=== PATIENT | female | born 1970 | race Caucasian/White ===

== ENCOUNTER 2024-07-04 19:39 | Inpatient (IN) | payer OTHER ==
--- NOTE | 2024-07-04 20:30 | ED ---
General Adult HPI - General Chief complaint: Skin/Abscess/Foreign Body Stated complaint: R Leg Wound Time Seen by Provider: 07/04/24 19:41 Source: patient, RN/MD, RN notes reviewed Mode of arrival: wheelchair Limitations: no limitations - History of Present Illness Initial comments: Patient is a 53-year-old female presenting to the emergency department with concern for right leg wound. Patient states she bumped her car a month ago and has been dealing with this since that time. Patient was on Keflex as an outpatient without improvement. Patient did see her primary care physician today who recommended she go to the emergency department. Patient was then transferred from [facility] here. Patient did have blood cultures done and IV antibiotics. No fever. Patient states discomfort has not been severe. - Related Data Allergies Allergy/AdvReac Type Severity Reaction Status Date / Time acetaminophen [From Vicodin] AdvReac Unknown Verified 07/04/24 19:45 hydrocodone [From Vicodin] AdvReac Unknown Verified 07/04/24 19:45 Review of Systems ROS Statement: Those systems with pertinent positive or pertinent negative responses have been documented in the HPI. ROS Other: All systems not noted in ROS Statement are negative. Constitutional: Denies: fever Eyes: Denies: eye pain ENT: Denies: ear pain Respiratory: Denies: cough, dyspnea Cardiovascular: Denies: chest pain Skin: Reports: as per HPI, rash Past Medical History Past Medical History: Diabetes Mellitus, Hypertension History of Any Multi-Drug Resistant Organisms: None Reported Past Surgical History: Orthopedic Surgery Past Psychological History: No Psychological Hx Reported Smoking Status: Current every day smoker Past Alcohol Use History: None Reported Past Drug Use History: None Reported General Exam Limitations: no limitations General appearance: alert, in no apparent distress Head exam: Present: normocephalic Eye exam: Present: normal appearance ENT exam: Present: normal oropharynx, other (Birthmark on the nose) Neck exam: Present: normal inspection Respiratory exam: Present: normal lung sounds bilaterally Cardiovascular Exam: Present: regular rate, normal rhythm GI/Abdominal exam: Present: soft. Absent: tenderness Extremities exam: Present: other (Right lower leg with erythema from the foot to the knee. Poor hygiene of the foot) Neurological exam: Present: alert. Absent: motor sensory deficit Psychiatric exam: Present: normal affect, normal mood Skin exam: Present: erythema Course Vital Signs 07/04/24 19:40 Temperature 99.0 F Pulse Rate 108 H Respiratory 18 Rate Blood Pressure 192/81 O2 Sat by Pulse 95 Oximetry Medical Decision Making - Medical Decision Making Was pt. sent in by a medical professional or institution ([facility] French, FRAME TENDER, urgent care, hospital, or fci...) When possible be specific @ -Patient was sent from primary care physician to [place] [facility] to here Did you speak to anyone other than the patient for history (EMS, parent, family, police, friend...)? What history was obtained from this source @ -I did speak to transferring physician Did you review nursing and triage notes (agree or disagree)? Why? @ -I reviewed and agree with nursing and triage notes Were old charts reviewed (outside hosp., previous admission, EMS record, old EKG, old radiological studies, urgent care reports/EKG's, fci records)? Report findings @ -Chart reviewed from outside emergency physician Differential Diagnosis (chest pain, altered mental status, abdominal pain women, abdominal pain men, vaginal bleeding, weakness, fever, dyspnea, syncope, headache, dizziness, GI bleed, back pain, seizure, CVA, palpatations, mental health, musculoskeletal)? @ -Differential Fever: Pneumonia, viral URI, endocarditis, myocarditis, pericarditis, otitis, sinusitis, peritonsillar Abscess, retropharyngeal Abscess, epiglottitis, peritonitis, appendicitis, Winnie cystitis, diverticulitis, hepatitis, colitis, UTI, PID, TOA, pyelonephritis, prostatitis, epididymitis, meningitis, encephalitis, pulmonary embolism, CVA, thyroid storm, pancreatitis, adrenal crisis, cavernous sinus thrombosis, this is not meant to be an all-inclusive list. EKG interpreted by me (3pts min.). @ -As above X-rays interpreted by me (1pt min.). @ -None done CT interpreted by me (1pt min.). @ -None done U/S interpreted by me (1pt. min.). @ -None done What testing was considered but not performed or refused? (CT, X-rays, U/S, labs)? Why? @ -None What meds were considered but not given or refused? Why? @ -None Did you discuss the management of the patient with other professionals (professionals i.e. KHO[facility] French, FRAME TENDER, lab, RT, psych nurse, healthcare social worker, vp human resources, teacher, ground intelligence officer, behavioral health case manager)? Give summary @ -Case discussed with Dr. Shah who will admit covering Dr. Ballard Was smoking cessation discussed for >3mins.? @ -No Was critical care preformed (if so, how long)? @ -No Were there social determinants of health that impacted care today? How? (Homelessness, low income, unemployed, alcoholism, drug addiction, transportation, low edu. Level, literacy, decrease access to med. care, half-way, rehab)? @ -No Was there de-escalation of care discussed even if they declined (Discuss DNR or withdrawal of care, Hospice)? DNR status @ -No What co-morbidities impacted this encounter? (DM, HTN, Smoking, COPD, CAD, Cancer, CVA, ARF, Chemo, Hep., AIDS, mental health diagnosis, sleep apnea, morbid obesity)? @ -Diabetes Was patient admitted / discharged? Hospital course, mention meds given and route, prescriptions, significant lab abnormalities, going to OR and other pertinent info. @ -Patient presents with cellulitis right lower leg, failed outpatient therapy. Patient high risk secondary to diabetes. Patient has elevated white count of 16. Blood culture and IV antibiotics were previously started. IV antibiotics will be continued. Admission orders written. Patient updated. Undiagnosed new problem with uncertain prognosis? @ -No Drug Therapy requiring intensive monitoring for toxicity (Heparin, Nitro, Insulin, Cardizem)? @ -No Were any procedures done? @ -No Diagnosis/symptom? @ -Cellulitis right lower leg Acute, or Chronic, or Acute on Chronic? @ -Acute Uncomplicated (without systemic symptoms) or Complicated (systemic symptoms)? @ -Default Side effects of treatment? @ -No Exacerbation, Progression, or Severe Exacerbation? @ -No Poses a threat to life or bodily function? How? (Chest pain, [place], [place], pneumonia, PE, COPD, DKA, ARF, appy, cholecystitis, CVA, Diverticulitis, Homicidal, Suicidal, threat to staff... and all critical care pts) @ -No Disposition Clinical Impression: Cellulitis of right leg Disposition: ADMITTED IP TO THIS HOSP Is patient prescribed a controlled substance at d/c from ED?: No Referrals: Oneal Ballard MD [Primary Care Provider] - 1-2 days Time of Disposition: 20:30
[2024-07-04] MEDS ORDERED: NALOXONE 0.4 MG/ML 1 ML VIAL IV PRN (20:33)
[2024-07-04] MEDS ORDERED: VANCOMYCIN IV PER PHARMACY 1 EACH MISC MISCELLANE PRN ×2 (20:33→23:08)
[2024-07-04] MEDS ORDERED: VANCOMYCIN 1,500 MG in SODIUM CHLORIDE 0.9% 500 ML 500 ML IVPB ONE (20:45)
[2024-07-04] MEDS ORDERED: DEXTROSE 50% SYRINGE 50 ML IVP PRN ×2 (21:24)
[2024-07-04] MEDS ORDERED: cloNIDine HCL 0.1 MG TAB PO PRN (21:27)
[2024-07-04] MEDS: FUROSEMIDE 10 MG/ML 2 ML VIAL IV STA (22:06)
--- NOTE | 2024-07-04 23:07 | P.HPIM ---
History of Present Illness H&P Date: 07/04/24 History of present illness; Patient is a 53-year-old female with diabetes on insulin, hypertension who presents with right leg wound. She states that 1 month ago she bumped her leg in her car. Patient began to notice redness, weeping wound in her right lower extremity. Patient saw her PCP and was placed on Keflex which she has taken for the last 5 days without improvement, to which her PCP recommended coming to ER. Patient was then transferred from [place] here. Patient did have blood cultures done and IV vancomycin and Zosyn. She is afebrile. She currently has no pain in her lower extremities. She also attest to poorly controlled diabetes with last HbA1c immeasurable and assumed to be over 15%. She also attest to ongoing blood pressure elevation which she is not taking medication for at this time. She denies any other symptoms of chills, chest pain, shortness of breath, abdominal pain. Spoke with the ER physician, patient admission was accepted by internal medicine service for treatment. REVIEW OF SYSTEMS: Pertinent positives and negatives noted in HPI. PHYSICAL EXAMINATION: VITAL SIGNS: Reviewed GENERAL: Resting comfortably in bed. Obese. Facial birthmark present on nose. EYES: PERRL, no scleral injection or icterus. HENT: Normocephalic, atraumatic, hearing grossly intact, moist mucous membranes. toothless. NECK: No tracheal deviation, full range of motion. CARDIOVASCULAR: S1 and S2 present. No murmurs, rubs, or gallops. PULMONARY: Chest is clear to auscultation, no wheezing, rhonchi, or crackles. ABDOMEN: Soft, nontender, nondistended. No palpable organomegaly. NEUROLOGICAL: Alert and oriented. Gross neurological examination with no apparent focal deficits. MUSCULOSKELETAL: No apparent joint swelling and deformities. EXTREMITIES: No apparent cyanosis, clubbing. 2+ peripheral edema bilaterally. Decreased sensation apparent in toes bilaterally. SKIN: Right lower extremity with erythema from foot extending inches below knee. Nontender. Dermatitis present. Nonpurulent, not ulcerating. Drainage below right ankle. Left lower extremity also with erythema, and significant dermatitis. Nontender, nonpurulent. Labs and imaging completed at [facility] reviewed. Labs significant for WBC 16, hemoglobin 16, platelets elevated, sodium 137, potassium 3.6, chloride 100, bicarb 28, BUN 19, glucose 179. X-ray of right foot interpreted to be without bony erosions. Assessment and Plan: In summary, patient is a 53-year-old female with diabetes on insulin, hypertension who presents with right leg wound. #Sepsis 2/2 Cellulitis of right lower extremity , failed outpatient therapy #Chronic venous insufficiency of bilateral lower limbs #Venous stasis dermatitis Initial WBC 16 elevated X-ray of right foot without bony erosions - blood culture at [facility] Status post Keflex for 5 days and dose of Zosyn and vancomycin antibiotics Lasix 20 mg IV given once - start on Vancomycin dose per pharm discontinue zosyn ID consulted normal saline 1 L bolus , then continue with 130 cc per hour , patient ? received 1 L at the other facility # Hypertensive urgency Begin lisinoprilhydrochlorothiazide 1012.5 daily Begin clonidine 0.1 p.o. every 8 hours as needed for SBP greater than 180 Monitor vitals renal function unremarkable , cr 0.8 BUN 19, K 3.6 Na 137 #Diabetes mellitus, type 2 #Uncontrolled hyperglycemia #Diabetic neuropathy Glucose 179 elevated Holding oral medications Begin Accu-Cheks and low-dose sliding scale, monitor for hypoglycemia HbA1c pending Chronic Medical Conditions: As above DVT ppx: Subq Lovenox 40 meq daily Code status: Full code F: P.o. E: Replete as needed N: Consistent carb diet A: Ambulatory Anticipated discharge place: Home Anticipated discharge time: 2 to 3 days David Flores MD Internal Medicine Resident, PGY1 Dictation was produced using [employer] dictation software. Please excuse any grammatical, word or spelling errors. I have seen and evaluated the patient today. I Discussed the case with the resident and agree with the resident's findings I edited the assessment and plan as necessary as documented in the resident's note. Past Medical History Past Medical History: Diabetes Mellitus, Hypertension History of Any Multi-Drug Resistant Organisms: None Reported Past Surgical History: Orthopedic Surgery Past Psychological History: No Psychological Hx Reported Smoking Status: Current every day smoker Past Alcohol Use History: None Reported Past Drug Use History: None Reported Medications and Allergies Home Medications Medication Instructions Recorded Confirmed Type Cephalexin [Keflex] 500 mg PO TID-W/MEALS 07/04/24 07/04/24 History Humalog Kwikpen (Unknown Dose) 50 units SQ DIRECTED 07/04/24 07/04/24 History metFORMIN HCL [Glucophage] 500 mg PO DIRECTED 07/04/24 07/04/24 History Allergies Allergy/AdvReac Type Severity Reaction Status Date / Time acetaminophen [From Vicodin] AdvReac Unknown Verified 07/04/24 21:04 hydrocodone [From Vicodin] AdvReac Unknown Verified 07/04/24 21:04 Physical Exam Vitals: Vital Signs Temp Pulse Resp BP Pulse Ox 07/04/24 19:40 99.0 F 108 H 18 192/81 95 Intake and Output 07/04/24 07/04/24 07/04/24 06:59 14:59 22:59 Other: Weight 91.626 kg
[2024-07-04] MEDS: SODIUM CHLORIDE 0.9% 500 ML 500 ML IV ONE (23:36)
[2024-07-05] MEDS ORDERED: PIPERACILLIN-TAZOBACTAM 3.375 GM in SODIUM CHLORIDE 0.9% 100 ML IVPB SCH
[2024-07-05] MEDS: SODIUM CHLORIDE 0.9% 1,000 ML IV SCH (01:03)
[2024-07-05] MEDS: ACETAMINOPHEN TAB 325 MG TAB PO PRN (02:17)
[2024-07-05 06:35] LABS: Glucose,Whole Blood 338 mg/dL (70-110)
[2024-07-05] MEDS: INSULIN LISPRO (HumaLOG) 100 UNIT/ML 10 mL VL SQ SCH (06:40)
[2024-07-05 07:21] LABS: ALT 17 U/L (4-34); AST 19 U/L (14-36); African American GFR (CKD) >90 (>60 ml/min/1.73 sqM); Albumin 2.1 g/dL (3.5-5.0); Alkaline Phosphatase 53 U/L (38-126); Anion Gap 4 mmol/L; Blood Urea Nitrogen 23 mg/dL (7-17); Calcium 8.4 mg/dL (8.4-10.2); Carbon Dioxide 27 mmol/L (22-30); Chloride 101 mmol/L (98-107); Glucose 333 mg/dL (74-99); Non-African American GFR(CKD) 85 (>60 ml/min/1.73 sqM); Potassium 3.1 mmol/L (3.5-5.1); Sodium 132 mmol/L (137-145); Total Bilirubin 0.5 mg/dL (0.2-1.3); Total Protein 5.1 g/dL (6.3-8.2)
[2024-07-05 07:23] LABS: Basophils # (A) 0.08 10*3/uL (0.00-0.10); Basophils % (A) 0.5 %; Eosinophils # (A) 0.14 10*3/uL (0.04-0.35); HCT 40.8 % (37.2-46.3); HGB 13.6 g/dL (12.0-15.0); Lymphocytes # (A) 2.26 10*3/uL (0.90-5.00); Lymphocytes % (A) 15.3 %; MCHC 33.3 g/dL (32.0-37.0); Mean Platelet Volume 10.4 fL (9.5-12.2); Monocytes % (A) 7.5 %; Neutrophils # (A) 11.09 10*3/uL (1.80-7.70); Neutrophils % (A) 75.3 %; Platelet Count 364 10*3/uL (140-440); RBC 4.69 10*6/uL (4.10-5.20); RDW 13.4 % (11.5-14.5); WBC 14.73 10*3/uL (4.50-10.00)
[2024-07-05] MEDS ORDERED: LISINOPRIL-HCTZ 10-12.5 MG 1 EACH TAB PO SCH (09:00)
[2024-07-05] MEDS: POTASSIUM CHLORIDE ER 20 MEQ TAB.ER PO STA (09:23)
[2024-07-05] MEDS: VANCOMYCIN 1,500 MG in SODIUM CHLORIDE 0.9% 500 ML 500 ML IVPB SCH (09:23)
[2024-07-05] MEDS: lisinopriL 10 MG TAB PO SCH (09:23)
[2024-07-05] MEDS: ENOXAPARIN 40 MG/0.4 ML SYRINGE SQ SCH (09:23)
--- NOTE | 2024-07-05 11:48 | P.PN ---
Subjective Progress Note Date: 07/05/24 Subjective: Patient seen and examined at bedside. No acute events overnight. Denies any significant lower extremity pain. Able to ambulate using a walker. Pertinent positives and negatives as discussed above, a complete review of systems was performed and all other systems are negative. Vitals Signs Reviewed. General: Nontoxic, no distress, appears at stated age, obese Derm: Warm, dry, bilateral lower extremity venous stasis dermatitis changes, right leg with significant erythema, and warm to touch, no drainage Head: Atraumatic, normocephalic, symmetric Eyes: EOMI, no lid lag, anicteric sclera Mouth: No lip lesion, mucus membranes moist Cardiovascular: S1S2 reg, no murmur Lungs: CTA bilateral, no rhonchi, no rales, no accessory muscle use Abdominal: Soft, nontender to palpation, no guarding, no appreciable organomegaly Ext: No gross muscle atrophy, 2+ pitting edema, no contractures Neuro: CN II-XI grossly intact, no focal neuro deficits Psych: Alert, oriented, appropriate affect Data Reviewed Today: Pertinent Labs: WBC 14.73, potassium 3.1, creatinine 0.8, sodium 132, glucose 338 Imaging: No new imaging Assessment and Plan: Active: Sepsis secondary to right lower extremity cellulitis, failed outpatient antibiotics Chronic venous insufficiency of bilateral lower extremities Venous stasis dermatitis - Patient has some evidence of hypervolemia - Did receive IV Lasix yesterday, hold off any further fluids or diuretics - Continue with IV vancomycin 1500 mg every 12 hours, monitor for renal toxicity - ID consulted, pending recommendations - Patient did have 5 days of oral Keflex outpatient, consider de-escalating to IV cefazolin Uncontrolled hypertension - Hold hydrochlorothiazide, continue with lisinopril 10 mg daily Type 2 diabetes Hyperglycemia - Continue sliding scale insulin, monitor for hypoglycemia - A1c pending Hypokalemia - 40 mill equivalent oral potassium given - Repeat BMP and magnesium tomorrow DVT ppx: Lovenox Code status: Full code Anticipated discharge place: Pending clinical course Anticipated discharge time: Pending clinical course Objective - Vital Signs Vital signs: Vital Signs Temp 99.5 F 07/05/24 06:29 Pulse 93 07/05/24 06:29 Resp 22 07/05/24 01:15 BP 144/63 07/05/24 06:29 Pulse Ox 95 07/05/24 06:29 FiO2 Intake & Output 05/12/25 05/13/25 05/13/25 18:59 06:59 18:59 Weight 91.626 kg Other: # Voids 1 - Labs CBC & Chem 7: 07/05/24 06:30 07/05/24 06:30 Labs: Abnormal Lab Results - Last 24 Hours (Table) 07/05/24 07/05/24 07/05/24 Range/Units 06:30 06:30 06:33 WBC 14.73 H (4.50-10.00) 10*3/uL Immature Gran # 0.06 H (0.00-0.04) 10*3/uL Neutrophils # 11.09 H (1.80-7.70) 10*3/uL Monocytes # 1.10 H (0.20-1.00) 10*3/uL Sodium 132 L (137-145) mmol/L Potassium 3.1 L (3.5-5.1) mmol/L BUN 23 H (7-17) mg/dL Glucose 333 H (74-99) mg/dL POC Glucose (mg/dL) 338 H (70-110) mg/dL Total Protein 5.1 L (6.3-8.2) g/dL Albumin 2.1 L (3.5-5.0) g/dL
[2024-07-05 13:44] LABS: Glucose,Whole Blood 369 mg/dL (70-110)
[2024-07-05] MEDS: NYSTAT-TRIAMCIN 100,000-0.1 UNIT/GM-% CREAM 30 GM TUBE TOPICAL SCH (13:54)
[2024-07-05 16:48] LABS: Glucose,Whole Blood 263 mg/dL (70-110)
[2024-07-05 20:17] LABS: Glucose,Whole Blood 198 mg/dL (70-110)
--- NOTE | 2024-07-05 21:37 | P.CONS ---
History of Present Illness - Reason for Consult Consult date: 07/05/24 Cellulitis Requesting physician: Syed Pretty - Chief Complaint Right leg swelling and redness x days - History of Present Illness Patient is a 53-year-old female with a past medical history of negative for diabetes mellitus hypertension current everyday smoker presenting to the hospital for evaluation of the right lower extremity wound. The patient bumped her right leg with a car door and since then has been dealing with the wound to the right lower extremity patient mention she has taken some oral Keflex without any improvement patient denies high-grade fever however she did have a low-grade fever 100.3 earlier this morning patient denies any headache or URI symptoms no chest pain shortness of breath or cough no nausea vomiting no abdominal pain or diarrhea she did have diabetic neuropathy denies significant pain to the right lower extremity symptom erythema and swelling to the right leg with some dry scaly skin denies any foul-smelling drainage patient did have white count of 14.73 creatinine 0.80 liver enzymes are normal potassium was 3.1 sodium 132 Review of Systems Positive point and negatives has been mentioned in the HPI, complete review of systems was performed and all other systems are negative Past Medical History Past Medical History: Diabetes Mellitus, Hypertension History of Any Multi-Drug Resistant Organisms: None Reported Past Surgical History: Orthopedic Surgery Additional Past Surgical History / Comment(s): L toe 5th digit amputated Past Anesthesia/Blood Transfusion Reactions: No Reported Reaction Past Psychological History: No Psychological Hx Reported Smoking Status: Current every day smoker Past Alcohol Use History: None Reported Past Drug Use History: None Reported Medications and Allergies Home Medications Medication Instructions Recorded Confirmed Type Cephalexin [Keflex] 500 mg PO TID-W/MEALS 07/04/24 07/04/24 History Humalog Kwikpen (Unknown Dose) 50 units SQ DIRECTED 07/04/24 07/04/24 History metFORMIN HCL [Glucophage] 500 mg PO TID 07/04/24 07/05/24 History Allergies Allergy/AdvReac Type Severity Reaction Status Date / Time hydrocodone [From Vicodin] AdvReac Unknown Verified 07/04/24 21:04 Physical Exam Vitals: Vital Signs Temp Pulse Pulse Resp BP BP BP 07/05/24 06:29 99.5 F 93 144/63 07/05/24 05:06 99.9 F H 07/05/24 01:15 22 07/05/24 01:07 100.3 F H 111 H 22 172/73 07/04/24 23:02 116 H 170/80 07/04/24 22:03 99.8 F H 110 H 17 175/78 07/04/24 21:23 98 18 160/76 07/04/24 19:40 99.0 F 108 H 18 192/81 Pulse Ox 07/05/24 06:29 95 07/05/24 05:06 07/05/24 01:15 93 L 07/05/24 01:07 88 L 07/04/24 23:02 07/04/24 22:03 92 L 07/04/24 21:23 98 07/04/24 19:40 95 Intake and Output 07/04/24 07/05/24 07/05/24 22:59 06:59 14:59 Other: # Voids 1 1 Weight 91.626 kg GENERAL DESCRIPTION: Middle-age female lying in bed, no distress. No tachypnea or accessory muscle of respiration use. HEENT: Shows Pallor , no scleral icterus. Oral mucous membrane is dry. NECK: Trachea central, no thyromegaly. LUNGS: Unlabored breathing. Clear to auscultation anteriorly. No wheeze or crackle. HEART: S1, S2, regular rate and rhythm. No loud murmur ABDOMEN: Soft, no tenderness , guarding or rigidity, no organomegaly EXTREMITIES: Right lower extremity with erythema, swelling dry scaly skin SKIN: No rash, no masses palpable. NEUROLOGICAL: The patient is awake, alert, oriented x3, mood and affect normal. Results CBC & Chem 7: 07/05/24 06:30 07/05/24 06:30 Labs: Abnormal Lab Results - Last 24 Hours (Table) 07/05/24 07/05/24 07/05/24 Range/Units 06:30 06:30 06:33 WBC 14.73 H (4.50-10.00) 10*3/uL Immature Gran # 0.06 H (0.00-0.04) 10*3/uL Neutrophils # 11.09 H (1.80-7.70) 10*3/uL Monocytes # 1.10 H (0.20-1.00) 10*3/uL Sodium 132 L (137-145) mmol/L Potassium 3.1 L (3.5-5.1) mmol/L BUN 23 H (7-17) mg/dL Glucose 333 H (74-99) mg/dL POC Glucose (mg/dL) 338 H (70-110) mg/dL Total Protein 5.1 L (6.3-8.2) g/dL Albumin 2.1 L (3.5-5.0) g/dL Assessment and Plan (1) Failure of outpatient treatment Current Visit: Yes Status: Acute Code(s): Z78.9 - OTHER SPECIFIED HEALTH ST AT SNOMED Code(s): 281403770 (2) Cellulitis of right leg Current Visit: Yes Status: Acute Code(s): L03.115 - CELLULITIS OF RIGHT LOWER LIMB SNOMED Code(s): 24353081198694974 (3) Sepsis Current Visit: Yes Status: Acute Code(s): A41.9 - SEPSIS, UNSPECIFIED ORGANISM SNOMED Code(s): 83371473 Plan: 1patient presented to the hospital with sepsis in this patient did have fever elevated white count meeting currently for SIRS/sepsis source is right lower extremity erythema swelling and dry scaly skin concerning for cellulitis failing outpatient oral Keflex therapy 2-we will apply Mycolog cream to the area of erythema 3-continue with the vancomycin pharmacy to dose while waiting for the culture to finalize We will follow on clinical condition and cultures to further adjust medication if needed Thank you for this consultation we will follow the patient along with you Dictation was produced using [employer] dictation software. please excuse any grammatical, word or spelling errors. Time with Patient: Greater than 30
[2024-07-06] MEDS: VANCOMYCIN 1,500 MG in SODIUM CHLORIDE 0.9% 500 ML 500 ML IVPB SCH ×2 (04:57→18:04)
[2024-07-06 06:14] LABS: Glucose,Whole Blood 207 mg/dL (70-110)
[2024-07-06 07:22] LABS: Basophils # (A) 0.06 10*3/uL (0.00-0.10); Basophils % (A) 0.4 %; Eosinophils # (A) 0.27 10*3/uL (0.04-0.35); Eosinophils % (A) 1.8 %; HCT 41.5 % (37.2-46.3); HGB 13.9 g/dL (12.0-15.0); Lymphocytes # (A) 2.87 10*3/uL (0.90-5.00); Lymphocytes % (A) 19.5 %; MCH 29.3 pg (27.0-32.0); MCHC 33.5 g/dL (32.0-37.0); MCV 87.4 fL (80.0-97.0); Monocytes # (A) 0.83 10*3/uL (0.20-1.00); Monocytes % (A) 5.6 %; Neutrophils # (A) 10.63 10*3/uL (1.80-7.70); Neutrophils % (A) 72.4 %; Platelet Count 395 10*3/uL (140-440); RBC 4.75 10*6/uL (4.10-5.20); RDW 13.2 % (11.5-14.5); WBC 14.71 10*3/uL (4.50-10.00)
[2024-07-06 07:43] LABS: African American GFR (CKD) >90 (>60 ml/min/1.73 sqM); Anion Gap 3 mmol/L; Blood Urea Nitrogen 16 mg/dL (7-17); Carbon Dioxide 28 mmol/L (22-30); Chloride 102 mmol/L (98-107); Glucose 206 mg/dL (74-99); Magnesium 1.7 mg/dL (1.6-2.3); Non-African American GFR(CKD) >90 (>60 ml/min/1.73 sqM); Potassium 3.6 mmol/L (3.5-5.1); Sodium 133 mmol/L (137-145)
[2024-07-06 11:21] VITALS: BMI 30.7
--- NOTE | 2024-07-06 11:40 | US ---
EXAMINATION TYPE: US venous doppler duplex LE RT DATE OF EXAM: 07/06/2024 11:34 AM COMPARISON: NONE CLINICAL INDICATION: Female, 53 years old with history of RLE swelling; right leg edema and celluliti s , Pain TECHNIQUE: The lower extremity deep venous system is examined utilizing real time linear array sonog adali with graded compression, color doppler sonography, and spectral doppler. SIDE PERFORMED: Right FINDINGS: VESSELS IMAGED: Common Femoral Vein Deep Femoral Vein Greater Saphenous Vein * Femoral Vein Popliteal Vein Small Saphenous Vein * Proximal Calf Veins (* superficial vessels) Right Leg: Negative for DVT, Color Doppler imaging shows patency of the vessels. Spectral waveforms are within normal limits. exam limited by edema and habitus. non-visualization of the proximal calf veins lymphadenopathy right groin, largest measures 5.2x2.7x1.2cm pulsatile bilateral CFV waveforms IMPRESSION: 1. No ultrasound evidence for deep venous thrombosis. 2. Large right groin lymph node. Further workup should be performed for lymphadenopathy. Correlate f or history of malignancy. [facility], , 07/06/2024 11:37 AM
[2024-07-06 11:58] LABS: Glucose,Whole Blood 249 mg/dL (70-110)
--- NOTE | 2024-07-06 11:58 | P.PN ---
Subjective Progress Note Date: 07/06/24 Subjective: Patient seen and examined at bedside. No acute events overnight. Denies any significant lower extremity pain. Denies fever, chills, chest pain, shortness of breath, nausea or vomiting, belly pain, diarrhea or constipation. Pertinent positives and negatives as discussed above, a complete review of systems was performed and all other systems are negative. Vitals Signs Reviewed. General: Nontoxic, no distress, appears at stated age, obese Derm: Warm, dry, bilateral lower extremity venous stasis dermatitis changes, right leg with significant erythema, and warm to touch, no drainage Head: Atraumatic, normocephalic, symmetric Eyes: EOMI, no lid lag, anicteric sclera Mouth: No lip lesion, mucus membranes moist Cardiovascular: S1S2 reg, no murmur Lungs: CTA bilateral, no rhonchi, no rales, no accessory muscle use Abdominal: Soft, nontender to palpation, no guarding, no appreciable organomegaly Ext: No gross muscle atrophy, trace edema bilaterally, no contractures Neuro: CN II-XI grossly intact, no focal neuro deficits Psych: Alert, oriented, appropriate affect Data Reviewed Today: Pertinent Labs: WBC 14.71, sodium 133, BUN 16, creatinine 0.71 Imaging: No new imaging Assessment and Plan: Active: Sepsis secondary to right lower extremity cellulitis, failed outpatient antibiotics Chronic venous insufficiency of bilateral lower extremities Venous stasis dermatitis -Continue with IV vancomycin 1500 mg every 12 hours, monitor for renal toxicity -Order Doppler ultrasound of right lower extremity -ID consulted, pending recommendations -Patient did have 5 days of oral Keflex outpatient Uncontrolled hypertension Continue with lisinopril 10 mg daily Type 2 diabetes Hyperglycemia - Continue sliding scale insulin, monitor for hypoglycemia - Hemoglobin A1c of 14.5 - Started on Lantus 15 units daily Hypokalemia, resolved Potassium of 3.6 Magnesium 1.7 Monitor morning BMP DVT ppx: Lovenox Code status: Full code Anticipated discharge place: Pending clinical course Anticipated discharge time: Pending clinical course I have seen and evaluated the patient today. Discussed with the resident and agree with the residents finding and plan as documented in the resident's note. Changes highlighted in blue font. Objective - Vital Signs Vital signs: Vital Signs Temp 100.4 F H 07/06/24 02:13 Pulse 99 07/06/24 02:13 Resp 18 07/06/24 02:13 BP 177/78 07/06/24 02:13 Pulse Ox 94 L 07/06/24 02:13 FiO2 Intake & Output 07/05/24 07/05/24 07/06/24 06:59 18:59 06:59 Weight 91.626 kg Other: # Voids 1 2 2 - Labs CBC & Chem 7: 07/06/24 06:55 07/06/24 06:55 Labs: Abnormal Lab Results - Last 24 Hours (Table) 07/05/24 07/05/24 07/05/24 Range/Units 06:30 06:30 06:30 WBC 14.73 H (4.50-10.00) 10*3/uL Immature Gran # 0.06 H (0.00-0.04) 10*3/uL Neutrophils # 11.09 H (1.80-7.70) 10*3/uL Monocytes # 1.10 H (0.20-1.00) 10*3/uL Sodium 132 L (137-145) mmol/L Potassium 3.1 L (3.5-5.1) mmol/L BUN 23 H (7-17) mg/dL Glucose 333 H (74-99) mg/dL POC Glucose (mg/dL) (70-110) mg/dL Hemoglobin A1c 14.5 H (<=6.0) % Total Protein 5.1 L (6.3-8.2) g/dL Albumin 2.1 L (3.5-5.0) g/dL 07/05/24 07/05/24 07/05/24 Range/Units 13:42 16:47 20:15 WBC (4.50-10.00) 10*3/uL Immature Gran # (0.00-0.04) 10*3/uL Neutrophils # (1.80-7.70) 10*3/uL Monocytes # (0.20-1.00) 10*3/uL Sodium (137-145) mmol/L Potassium (3.5-5.1) mmol/L BUN (7-17) mg/dL Glucose (74-99) mg/dL POC Glucose (mg/dL) 369 H 263 H 198 H (70-110) mg/dL Hemoglobin A1c (<=6.0) % Total Protein (6.3-8.2) g/dL Albumin (3.5-5.0) g/dL 07/06/24 Range/Units 06:12 WBC (4.50-10.00) 10*3/uL Immature Gran # (0.00-0.04) 10*3/uL Neutrophils # (1.80-7.70) 10*3/uL Monocytes # (0.20-1.00) 10*3/uL Sodium (137-145) mmol/L Potassium (3.5-5.1) mmol/L BUN (7-17) mg/dL Glucose (74-99) mg/dL POC Glucose (mg/dL) 207 H (70-110) mg/dL Hemoglobin A1c (<=6.0) % Total Protein (6.3-8.2) g/dL Albumin (3.5-5.0) g/dL
[2024-07-06] MEDS: INSULIN GLARGINE (LANTUS) 100 UNIT/ML SYR SQ STA (12:23)
[2024-07-06 16:38] LABS: Glucose,Whole Blood 224 mg/dL (70-110)
[2024-07-06 20:42] LABS: Glucose,Whole Blood 163 mg/dL (70-110)
[2024-07-06] MEDS: cloNIDine HCL 0.2 MG TAB PO STA (22:00)
[2024-07-07 06:03] LABS: Glucose,Whole Blood 173 mg/dL (70-110)
[2024-07-07] MEDS: VANCOMYCIN TROUGH DUE 1 EACH MISC MISCELLANE ONE (06:30)
[2024-07-07 06:44] LABS: African American GFR (CKD) >90 (>60 ml/min/1.73 sqM); Non-African American GFR(CKD) >90 (>60 ml/min/1.73 sqM)
[2024-07-07] MEDS: INSULIN GLARGINE (LANTUS) 100 UNIT/ML SYR SQ SCH (06:45)
[2024-07-07 08:53] LABS: Basophils # (A) 0.07 10*3/uL (0.00-0.10); Basophils % (A) 0.6 %; Eosinophils # (A) 0.29 10*3/uL (0.04-0.35); Eosinophils % (A) 2.5 %; HGB 13.4 g/dL (12.0-15.0); Lymphocytes # (A) 2.38 10*3/uL (0.90-5.00); Lymphocytes % (A) 20.6 %; MCH 29.4 pg (27.0-32.0); MCHC 33.5 g/dL (32.0-37.0); MCV 87.7 fL (80.0-97.0); Mean Platelet Volume 10.6 fL (9.5-12.2); Monocytes # (A) 0.71 10*3/uL (0.20-1.00); Monocytes % (A) 6.1 %; Neutrophils # (A) 8.07 10*3/uL (1.80-7.70); Neutrophils % (A) 69.9 %; Platelet Count 383 10*3/uL (140-440); RBC 4.56 10*6/uL (4.10-5.20); RDW 13.2 % (11.5-14.5); WBC 11.55 10*3/uL (4.50-10.00)
[2024-07-07 09:01] LABS: ALT 27 U/L (4-34); AST 27 U/L (14-36); African American GFR (CKD) >90 (>60 ml/min/1.73 sqM); Albumin 2.1 g/dL (3.5-5.0); Alkaline Phosphatase 87 U/L (38-126); Anion Gap 0 mmol/L; Blood Urea Nitrogen 14 mg/dL (7-17); Calcium 9.1 mg/dL (8.4-10.2); Carbon Dioxide 29 mmol/L (22-30); Chloride 105 mmol/L (98-107); Glucose 171 mg/dL (74-99); Non-African American GFR(CKD) >90 (>60 ml/min/1.73 sqM); Potassium 3.7 mmol/L (3.5-5.1); Sodium 134 mmol/L (137-145); Total Bilirubin 0.3 mg/dL (0.2-1.3)
[2024-07-07 10:16] VITALS: RESP 20
[2024-07-07] MEDS: lisinopriL 10 MG TAB PO STA (10:51)
[2024-07-07 11:43] LABS: Glucose,Whole Blood 314 mg/dL (70-110)
--- NOTE | 2024-07-07 13:39 | P.DS ---
Providers Date of admission: 07/04/24 20:34 Expected date of discharge: 07/07/24 Attending physician: Aubrey Molina MD Consults: 07/04/24 20:33 Consult Physician Routine Consulting Provider: Jonelle Diallo Consult Reason/Comments: cellulitis Do you want consulting provider notified?: Yes, Notify in am Primary care physician: Oneal [facility] Hospital Course: Hospital course Patient is a 53-year-old female with diabetes on insulin, hypertension who presents with right leg wound. She states that 1 month ago she bumped her leg in her car. Patient began to notice redness, weeping wound in her right lower extremity. Patient saw her PCP and was placed on Keflex which she has taken for the last 5 days without improvement, to which her PCP recommended coming to ER. Patient was then transferred from [facility] here. Patient did have blood cultures done and IV vancomycin and Zosyn. She is afebrile. She currently has no pain in her lower extremities. She also attest to poorly controlled diabetes with last HbA1c immeasurable and assumed to be over 15%. She also attest to ongoing blood pressure elevation which she is not taking medication for at this time. She denies any other symptoms of chills, chest pain, shortness of breath, abdominal pain. Patient had a venous Doppler ultrasound of right lower extremity on 07/06/2024 which showed no ultrasound evidence for DVT. Large right groin lymph node likely due to underlying right extremity cellulitis. Patient was started on vancomycin on 07/04/2024. Patient's symptoms improved during the course of hospitalization. She is medically stable to be discharged back home on 07/07/2024. Doxycycline 100 mg twice daily for 7 days, insulin glargine 15 units subcu daily, lisinopril 20 mg daily and Mycolog cream have been added to medication list. Cephalexin 500 mg 3 times daily and Humalog 15 units subcu have been discontinued. Patient is recommended to follow-up with PCP in 1 to 3 days after discharge for elevated hemoglobin A1c of 14.5. GENERAL: This is a 53-year-old in no apparent distress at the time of examination. Pleasant and cooperative. HEENT: Head is atraumatic, normocephalic. Pupils are equal, round, and reactive to light. Sclerae anicteric. Conjunctivae are clear. Mucus membranes of the mouth are moist. Neck is supple. RESPIRATORY: Clear to auscultation. No wheezes, rales, or rhonchi. No use of accessory muscles. Patient maintaining oxygen saturation greater than 92%. No chest wall tenderness is noted on palpation or with deep breathing. CARDIOVASCULAR: Regular rate and rhythm. S1 and S2 noted. No systolic or diastolic murmur auscultated. No JVD noted. No S3 or S4 noted. GASTROINTESTINAL: No distention noted. Abdomen soft and round. Normal active bowel sounds auscultated x 4 quadrants. No pain or tenderness noted upon palpation. INTEGUMENTARY: No cyanosis. No jaundice. No rashes noted. No cellulitis noted. EXTREMITIES: 2+ peripheral pulses. No evidence of peripheral edema. No calf tenderness noted. Mild erythema of the right lower extremity wrapped in dressing with no signs of drainage, bleeding, discoloration. NEUROLOGIC: Cranial nerves II-XII intact. PSYCHIATRIC: Awake, alert, and oriented X 3. Appropriate affect. Intact judgement and insight. Discharge diagnosis Right lower extremity cellulitis Chronic venous insufficiency of bilateral lower extremities Venous stasis dermatitis Hypertension Type 2 diabetes, hemoglobin A1c of 14.5 A total of 38 minutes of time were spent preparing this complex discharge summary. Patient was discharged on 07/07/2024 at 1310. I have seen and evaluated the patient today. Discussed with the resident and agree with the residents finding and plan as documented in the resident's note. Changes highlighted in blue font. Patient Condition at Discharge: Stable Plan - Discharge Summary Discharge Rx Participant: Yes New Discharge Prescriptions: New Doxycycline Hyclate 100 mg PO Q12HR #14 capsule Insulin Glargine,Hum.rec.anlog [Lantus Solostar Pen] 15 units SQ DAILY #7 each lisinopriL [Zestril] 20 mg PO DAILY #90 tab Nystatin/Triamcin Cream [Mycolog Cream -- 100,000-0.1 Unit/gm-%] 1 applic TOPICAL DAILY #15 gm Continue metFORMIN HCL [Glucophage] 500 mg PO TID Discontinued Cephalexin [Keflex] 500 mg PO TID-W/MEALS Humalog Kwikpen (Unknown Dose) 50 units SQ DIRECTED Discharge Medication List metFORMIN HCL [Glucophage] 500 mg PO TID 07/04/24 [History] Doxycycline Hyclate 100 mg PO Q12HR #14 capsule 07/07/24 [Rx] Insulin Glargine,Hum.rec.anlog [Lantus Solostar Pen] 15 units SQ DAILY #7 each 07/07/24 [Rx] Nystatin/Triamcin Cream [Mycolog Cream -- 100,000-0.1 Unit/gm-%] 1 applic TOPICAL DAILY #15 gm 07/07/24 [Rx] lisinopriL [Zestril] 20 mg PO DAILY #90 tab 07/07/24 [Rx] Follow up Appointment(s)/Referral(s): Oneal Ballard MD [Primary Care Provider] - 1-2 days Patient Instructions/Handouts: Cellulitis (ED) Activity/Diet/Wound Care/Special Instructions: Follow-up with your PCP in 1 to 3 days after discharge. Discharge Disposition: HOME SELF-CARE
[2024-07-07 14:53] VITALS: BP 173/83; PULSE 75; TEMP 98.1
--- NOTE | 2024-07-07 14:56 | P.PN ---
Subjective Progress Note Date: 07/06/24 Principal diagnosis: Reason for follow-up is right lower extremity cellulitis Patient is a 53-year-old female with a past medical history of negative for diabetes mellitus hypertension current everyday smoker presenting to the hospital for evaluation of the right lower extremity wound patient admitted with cellulitis failing outpatient oral Keflex. On today's evaluation that is 07/06/2024, Patient is afebrile patient is currently on room air and denies having any shortness of breath, the patient denies any chest pain or cough, the patient denies any nausea vomiting did not have any abdominal pain and no diarrhea. Pain to the right leg has decrease in intensity. Patient white count is 14.71 creatinine 0.71 Objective - Vital Signs Vital signs: Vital Signs Temp 98.8 F 07/06/24 07:00 Pulse 90 07/06/24 07:00 Resp 18 07/06/24 07:00 BP 163/80 07/06/24 07:00 Pulse Ox 94 L 07/06/24 07:00 FiO2 Intake & Output 07/05/24 07/06/24 07/06/24 18:59 06:59 18:59 Weight 91.626 kg Other: # Voids 2 2 - Exam GENERAL DESCRIPTION: Middle-age female lying in bed in no distress RESPIRATORY SYSTEM: Unlabored breathing , decreased breath sounds at bases HEART: S1 S2 regular rate and rhythm , ABDOMEN: Soft , no tenderness EXTREMITIES: Right leg currently dressed no drainage of the dressing - Labs CBC & Chem 7: 07/07/24 06:05 07/07/24 06:05 Labs: Abnormal Lab Results - Last 24 Hours (Table) 07/05/24 07/05/24 07/05/24 Range/Units 06:30 13:42 16:47 WBC (4.50-10.00) 10*3/uL Immature Gran # (0.00-0.04) 10*3/uL Neutrophils # (1.80-7.70) 10*3/uL Sodium (137-145) mmol/L Glucose (74-99) mg/dL POC Glucose (mg/dL) 369 H 263 H (70-110) mg/dL Hemoglobin A1c 14.5 H (<=6.0) % 07/05/24 07/06/24 07/06/24 Range/Units 20:15 06:12 06:55 WBC (4.50-10.00) 10*3/uL Immature Gran # (0.00-0.04) 10*3/uL Neutrophils # (1.80-7.70) 10*3/uL Sodium 133 L (137-145) mmol/L Glucose 206 H (74-99) mg/dL POC Glucose (mg/dL) 198 H 207 H (70-110) mg/dL Hemoglobin A1c (<=6.0) % 07/06/24 07/06/24 Range/Units 06:55 11:57 WBC 14.71 H (4.50-10.00) 10*3/uL Immature Gran # 0.05 H (0.00-0.04) 10*3/uL Neutrophils # 10.63 H (1.80-7.70) 10*3/uL Sodium (137-145) mmol/L Glucose (74-99) mg/dL POC Glucose (mg/dL) 249 H (70-110) mg/dL Hemoglobin A1c (<=6.0) % Assessment and Plan (1) Failure of outpatient treatment Current Visit: Yes Status: Acute Code(s): Z78.9 - OTHER SPECIFIED HEALTH STATUS SNOMED Code(s): 741363597 (2) Cellulitis of right leg Current Visit: Yes Status: Acute Code(s): L03.115 - CELLULITIS OF RIGHT LOWER LIMB SNOMED Code(s): 73943074258606696 (3) Sepsis Current Visit: Yes Status: Acute Code(s): A41.9 - SEPSIS, UNSPECIFIED ORGANISM SNOMED Code(s): 39546530 Plan: 1patient presented to the hospital with sepsis in this patient did have fever elevated white count meeting currently for SIRS/sepsis source is right lower extremity erythema swelling and dry scaly skin concerning for cellulitis failing outpatient oral Keflex therapy 2-patient was to continue with Mycolog cream to the area of erythema along with vancomycin and will reevaluate the leg tomorrow at the time of dressing changes Dictation was produced using [employer] dictation software. please excuse any grammatical, word or spelling errors. Time with Patient: Less than 30
--- NOTE | 2024-07-07 14:57 | P.PN ---
Subjective Progress Note Date: 07/07/24 Principal diagnosis: Reason for follow-up is right lower extremity cellulitis Patient is a 53-year-old female with a past medical history of negative for diabetes mellitus hypertension current everyday smoker presenting to the hospital for evaluation of the right lower extremity wound patient admitted with cellulitis failing outpatient oral Keflex. On today's evaluation that is 07/07/2024, patient has been afebrile, patient is breathing comfortably and is currently on room air, patient denies having any chest pain and cough, patient denies nausea vomiting or diarrhea and no abdominal pain patient mentioned improvement to the right lower extremity pain as well as redness no drainage. Patient white count is down to 11.55 creatinine 0.74 Vanco trough is 18 Objective - Vital Signs Vital signs: Vital Signs Temp 98.7 F 07/07/24 07:30 Pulse 78 07/07/24 07:30 Resp 20 07/07/24 07:30 BP 146/67 07/07/24 07:30 Pulse Ox 99 07/07/24 07:30 FiO2 Intake & Output 07/06/24 07/07/24 07/07/24 18:59 06:59 18:59 Intake Total 425 120 Balance 425 120 Weight 91.626 kg Intake: Oral 425 120 Other: # Voids 2 2 0 # Bowel Movements 0 - Exam GENERAL DESCRIPTION: Middle-age female lying in bed in no distress RESPIRATORY SYSTEM: Unlabored breathing , decreased breath sounds at bases HEART: S1 S2 regular rate and rhythm , ABDOMEN: Soft , no tenderness EXTREMITIES: Right leg swelling redness has decreased no drainage - Labs CBC & Chem 7: 07/07/24 06:05 07/07/24 06:05 Labs: Abnormal Lab Results - Last 24 Hours (Table) 07/06/24 07/06/24 07/06/24 Range/Units 11:57 16:37 20:41 WBC (4.50-10.00) 10*3/uL Neutrophils # (1.80-7.70) 10*3/uL Sodium (137-145) mmol/L Glucose (74-99) mg/dL POC Glucose (mg/dL) 249 H 224 H 163 H (70-110) mg/dL Total Protein (6.3-8.2) g/dL Albumin (3.5-5.0) g/dL 07/07/24 07/07/2407/07/25 Range/Units 06:01 06:05 06:05 WBC 11.55 H (4.50-10.00) 10*3/uL Neutrophils # 8.07 H (1.80-7.70) 10*3/uL Sodium 134 L (137-145) mmol/L Glucose 171 H (74-99) mg/dL POC Glucose (mg/dL) 173 H (70-110) mg/dL Total Protein 5.0 L (6.3-8.2) g/dL Albumin 2.1 L (3.5-5.0) g/dL 07/07/24 Range/Units 11:37 WBC (4.50-10.00) 10*3/uL Neutrophils # (1.80-7.70) 10*3/uL Sodium (137-145) mmol/L Glucose (74-99) mg/dL POC Glucose (mg/dL) 314 H (70-110) mg/dL Total Protein (6.3-8.2) g/dL Albumin (3.5-5.0) g/dL Assessment and Plan (1) Failure of outpatient treatment Current Visit: Yes Status: Acute Code(s): Z78.9 - OTHER SPECIFIED HEALTH STATUS SNOMED Code(s): 095175705 (2) Cellulitis of right leg Current Visit: Yes Status: Acute Code(s): L03.115 - CELLULITIS OF RIGHT LOWER LIMB SNOMED Code(s): 88947332332929490 (3) Sepsis Current Visit: Yes Status: Acute Code(s): A41.9 - SEPSIS, UNSPECIFIED ORGANISM SNOMED Code(s): 99718238 Plan: 1patient presented to the hospital with sepsis in this patient did have fever elevated white count meeting currently for SIRS/sepsis source is right lower extremity erythema swelling and dry scaly skin concerning for cellulitis failing outpatient oral Keflex therapy 2-patient seem to have shown clinical improvement plan is to finish therapy with a 7-day course of oral doxycycline and continue with Mycolog cream to the area of erythema about a week, prescription sent to the pharmacy Care discussed with the resident physician Dictation was produced using [employer] dictation software. please excuse any grammatical, word or spelling errors. Time with Patient: Less than 30
[2024-07-08] MEDS ORDERED: lisinopriL 20 MG TAB PO SCH (09:00)
== END 2024-07-07 15:45 | disposition home or self-care (01) | DRG 872 ==
LOC: EC 19:39 → 1SOBS 20:34
PROVIDERS: ADMIT Internal Medicine; ATTEND Internal Medicine
DX: A41.9 Sepsis, unspecified organism (principal); I16.0 Hypertensive urgency; E11.42 Type 2 diabetes mellitus with diabetic polyneuropathy; L03.115 Cellulitis of right lower limb; E11.65 Type 2 diabetes mellitus with hyperglycemia; Z79.4 Long term (current) use of insulin; I10 Essential (primary) hypertension; I87.2 Venous insufficiency (chronic) (peripheral); E87.6 Hypokalemia; E87.70 Fluid overload, unspecified; Z79.84 Long term (current) use of oral hypoglycemic drugs; Z79.899 Other long term (current) drug therapy; Z88.5 Allergy status to narcotic agent; F17.210 Nicotine dependence, cigarettes, uncomplicated; Z89.422 Acquired absence of other left toe(s)
CPT/HCPCS: 80048; 80053; 80202; 82565; 83036; 83735; 85025; 99284

== ENCOUNTER → 2024-09-13 | Outpatient (CLI) | payer OTHER ==
--- NOTE | 2024-09-13 08:49 | MM ---
Reason for Exam: Screening (asymptomatic). Patient History: Menarche at age 11. First Full-Term at age 39. Late child-bearing (after 30). Postmenopausal. Maternal grandmother had breast cancer. Risk Values: Jessica 5 year model risk: 1.6%. NCI Lifetime model risk: 12.8%. Prior Study Comparison: No prior studies available for comparison. Tissue Density: The breasts are heterogeneously dense, which may obscure small masses. Findings: Analyzed By CAD. Right breast: There is no suspicious group of microcalcifications or new suspicious mass. Left breast: There is no suspicious group of microcalcifications or new suspicious mass. Overall Assessment: Negative, BI-RAD 1 Management: Screening Mammogram of both breasts in [address] [facility] will attempt to contact patient to return for supplemental views and ultrasound if indicated. Patient should continue monthly self-breast exams. A clinical breast exam by your physician is recommended on an annual basis. This exam should not preclude additional follow-up of suspicious palpable abnormalities. Note on Jessica scores and lifetime risk: 1. A Jessica score greater than 3% is considered moderate risk. If this is the case, consider specialist referral to assess eligibility for a risk reducing agent. 2. If overall lifetime risk for the development of breast cancer is 20% or higher, the patient may qualify for future screening with alternating mammogram and breast MRI. [facility], , 09/13/2024 8:46 AM. Electronically signed and approved by: David Bar DO
== END | disposition home or self-care (01) ==
LOC: RADMAMWWP 08:01
PROVIDERS: ATTEND Family Medicine
DX: Z12.31 Encounter for screening mammogram for malignant neoplasm of breast (principal); R92.333 Mammographic heterogeneous density, bilateral breasts; Z78.0 Asymptomatic menopausal state; Z80.3 Family history of malignant neoplasm of breast
CPT/HCPCS: 77067